=== PATIENT | male | born 1985 | race Caucasian/White ===

== ENCOUNTER 2017-10-25 14:28 | Emergency (ER) | payer OTHER ==
--- NOTE | 2017-10-25 14:46 | EDPHY ---
H & P Stated Complaint: r flank and rlq abd pain last few days/worse today - Personal History Current Tetanus/Diphtheria Vaccine: Yes - Medical/Surgical History Hx Asthma: No Hx Chronic Respiratory Disease: No Hx Diabetes: No Hx Cardiac Disease: No Hx Renal Disease: No Hx Cirrhosis: No Hx Alcoholism: No Hx HIV/AIDS: No Hx Splenectomy or Spleen Trauma: No Other PMH: back issues/mass on L4 - Social History Smoking Status: Never smoked Time Seen by Provider: 10/25/17 14:38 HPI/ROS: CHIEF COMPLAINT: Abdominal pain x1 day HISTORY OF PRESENT ILLNESS: 32-year-old male complaining of right lower quadrant abdominal pain for the past 1 day. He was seen at [facility], had negative urinalysis and referred to the ER for evaluation of possible acute appendicitis. Denies nausea or vomiting. Denies radiation pain. Denies testicular pain. Denies trauma. Denies urinary abnormality Last oral intake was at 11:00 a.m. consisting of an apple REVIEW OF SYSTEMS: A ten point review of systems was performed and is negative with the exception of the items mentioned in the HPI PAST MEDICAL & SURGICAL HISTORY: No pertinent medical or surgical history SOCIAL HISTORY: Nonsmoker PHYSICAL EXAM (Prior to examination, patient consented to physical exam, hands were washed and my usual and customary physical exam procedures followed) 1) GENERAL: Well-developed, well-nourished, alert and oriented. Appears nontoxic. 2) HEAD: Normocephalic, atraumatic 3) HEENT: Pupils equal, round, reactive to light bilaterally. Sclera anicteric. Nasopharynx, oropharynx, clear, no lesions moist mucous membranes 4) NECK: Full range of motion, no meningeal signs. 5) LUNGS: Clear auscultation bilaterally, no wheezes, no rhonchi, no retractions. 6) HEART: Regular rate and rhythm, no murmur, no heave, no gallop. 7) ABDOMEN: Tender to palpation at McBurney's point, negative Garcia's, negative Rovsing's, negative peritoneal sign, no mass, no hernia. 8) MUSCULOSKELETAL: Moving all extremities, no focal areas of tenderness, no obvious trauma. No peripheral edema or discoloration. 9) BACK: No CVA tenderness, no midline vertebral tenderness, no fluctuance, no step-off, no obvious trauma, no visual or palpable abnormality. 10) SKIN: No rash, no petechiae. 11) : Circumcised, normal male external genitalia bilateral testicles are nontender, no high-riding, normal cremasteric reflex bilaterally. No hernia DIFFERENTIAL DIAGNOSIS: My differential diagnosis includes, but is not limited to, acute appendicitis, acute cholecystitis, bowel obstruction, acute pancreatitis, testicular torsion, gastritis and urinary tract infection. The patient understands that this diagnosis is provisional and can never be 100% accurate. This is a partial list of diagnoses considered. These considerations are based on history, physical exam, past history and reassessment. (Melissa Whitman) Constitutional: Initial Vital Signs Temperature (C) 36.8 C 10/25/17 14:30 Heart Rate 56 L 10/25/17 14:30 Respiratory Rate 18 10/25/17 14:30 Blood Pressure 127/77 H 10/25/17 14:30 O2 Sat (%) 96 10/25/17 14:30 O2 Delivery Mode Room Air Allergies/Adverse Reactions: No Known Allergies Allergy (Unverified 10/25/17 14:30) Home Medications: Medication Instructions Recorded NK [No Known Home Meds] 10/25/17 Medical Decision Making - Diagnostics Imaging Results: Imaging Impressions Abdomen CT 10/25/17 15:06 Impression: Normal CT examination of the abdomen and pelvis. No evidence of acute appendicitis. Results called to Francisco Whitman PA-C, at 4:15 PM. Images reviewed by myself (Melissa Whitman) ED Course/Re-evaluation: 2:44 p.m.: Patient is complaining of focal right lower quadrant pain, tender to palpation McBurney's point, normal exam. Will plan on imaging studies, laboratory studies. He remains NPO since 11:00 a.m. today. Care of patient under supervision of primary supervising physician Dr Garcia . I reviewed the patient's urinalysis which was obtained shortly prior to arrival urgent care this is negative for bacteriuria, pyuria, hematuria. 4:17 p.m.: CT abdomen pelvis interpreted by staff radiologist is negative for appendicitis or acute intra-abdominal pathology. Images reviewed by myself 4:30 p.m.: Re-evaluation. Discussed with the patient his imaging results. Re- examined the patient. Abdomen is soft , no guarding no rebound no McBurney's point pain. Specific etiology of his abdominal pain is incompletely clear at this time. Doubt acute surgical abdominal pathology. I do not think that hospital admission or emergent surgical consultation is indicated. Plan will be discharge with close follow-up and usual and customary abdominal precautions instructions. He feels comfortable being discharged. Discussed case with primary supervising physician Dr. Garcia in emergency department (Melissa Whitman) Other Provider: PHYSICIAN DOCUMENTATION: The patient was evaluated and managed by the Physician Overhead Worker. My co- signature indicates that I have reviewed this chart and I agree with the findings and plan of care as documented. I am the secondary supervising physician. (Josias Garcia) - Data Points Laboratory Results: Laboratory Results 10/25/17 15:10 10/25/17 15:10 10/25/17 10/25/17 10/25/17 15:29 15:10 15:10 WBC 9.56 10^3/uL H 10^3/uL (3.80-9.50) RBC 5.10 10^6/uL 10^6/uL (4.40-6.38) Hgb 15.9 g/dL g/dL (13.7-17.5) POC Hgb 15.6 gm/dL gm/dL (13.7-17.5) Hct 45.1 % % (40.0-51.0) POC Hct 46 % % (40-51) MCV 88.4 fL fL (81.5-99.8) MCH 31.2 pg pg (27.9-34.1) MCHC 35.3 g/dL g/dL (32.4-36.7) RDW 12.8 % % (11.5-15.2) Plt Count 188 10^3/uL 10^3/uL (150-400) MPV 10.4 fL fL (8.7-11.7) Neut % (Auto) 62.6 % % (39.3-74.2) Lymph % (Auto) 27.3 % % (15.0-45.0) Reeves % (Auto) 8.2 % % (4.5-13.0) Eos % (Auto) 1.0 % % (0.6-7.6) Baso % (Auto) 0.6 % % (0.3-1.7) Nucleat RBC Rel Count 0.0 % % (0.0-0.2) Absolute Neuts (auto) 5.98 10^3/uL 10^3/uL (1.70-6.50) Absolute Lymphs (auto) 2.61 10^3/uL 10^3/uL (1.00-3.00) Absolute Monos (auto) 0.78 10^3/uL 10^3/uL (0.30-0.80) Absolute Eos (auto) 0.10 10^3/uL 10^3/uL (0.03-0.40) Absolute Basos (auto) 0.06 10^3/uL 10^3/uL (0.02-0.10) Absolute Nucleated RBC 0.00 10^3/uL 10^3/uL (0-0.01) Immature Gran % 0.3 % % (0.0-1.1) Immature Gran # 0.03 10^3/uL 10^3/uL (0.00-0.10) POC Sodium 140 mEq/L mEq/L (135-145) Sodium 139 mEq/L mEq/L (135-145) POC Potassium 3.8 mEq/L mEq/L (3.3-5.0) Potassium 4.1 mEq/L mEq/L (3.5-5.2) POC Chloride 104 mEq/L mEq/L (97-110) Chloride 104 mEq/L mEq/L (97-110) Carbon Dioxide 25 mEq/l mEq/l (22-31) Anion Gap 10 mEq/L mEq/L (8-16) POC BUN 10 mg/dL mg/dL (7-23) BUN 12 mg/dL mg/dL (7-23) Creatinine 0.8 mg/dL mg/dL (0.7-1.3) POC Creatinine 0.8 mg/dL mg/dL (0.7-1.3) Estimated GFR > 60 Glucose 78 mg/dL mg/dL (70-100) POC Glucose 82 mg/dL mg/dL (70-100) Calcium 9.2 mg/dL mg/dL (8.5-10.4) Total Bilirubin 1.3 mg/dL mg/dL (0.1-1.4) Conjugated Bilirubin 0.3 mg/dL mg/dL (0.0-0.5) Unconjugated Bilirubin 1.0 mg/dL mg/dL (0.0-1.1) AST 23 IU/L IU/L (17-59) ALT 36 IU/L IU/L (21-72) Alkaline Phosphatase 61 IU/L IU/L (38-126) Total Protein 7.0 g/dL g/dL (6.3-8.2) Albumin 4.4 g/dL g/dL (3.5-5.0) Lipase 41 IU/L IU/L (23-300) Medications Given: Discontinued Medications Sodium Chloride (Ns) 1,000 mls @ 0 mls/hr IV ONCE ONE PRN Reason: Wide Open Stop: 10/25/17 15:07 Last Admin: 10/25/17 15:25 Dose: 1,000 mls Ketorolac Tromethamine (Toradol) 15 mg IVP EDNOW ONE Stop: 10/25/17 15:07 Last Admin: 10/25/17 15:28 Dose: 15 mg Point of Care Test Results: 10/25/17 15:29 POC Sodium 140 POC Potassium 3.8 POC Chloride 104 POC BUN 10 POC Creatinine 0.8 POC Glucose 82 Departure - Departure Disposition: Home, Routine, Self-Care Clinical Impression: Abdominal pain Qualifiers: Abdominal location: right lower quadrant Qualified Code(s): R10.31 - Right lower quadrant pain Condition: Good Instructions: Acute Abdominal Pain (ED) Additional Instructions: Seek immediate medical attention if you develop new or worsening symptoms, if you develop fevers, chills, inability to tolerate oral intake or any other symptoms that concerns you. Referrals: WADE LOPEZ [Primary Care Provider] - 1 day without fail
[2017-10-25] MEDS ORDERED: NS 1,000 ML IV ONE (15:06)
[2017-10-25] MEDS ORDERED: KETOROLAC 15 MG/1 ML SDV IVP ONE (15:06)
[2017-10-25 15:23] LABS: PLATELET COUNT 188 10^3/uL (150-400)
[2017-10-25] MEDS ORDERED: IOPAMIDOL (ISOVUE-300) 100 ML BTL ONE (15:47)
[2017-10-25 17:04] VITALS: BP 116/67
== END 2017-10-25 17:04 | disposition home or self-care (01) ==
DX: R10.31 Right lower quadrant pain (principal)
CPT/HCPCS: 82947-QW; 96374; J1885; Q9967

== ENCOUNTER → 2018-11-28 | Outpatient (CLI) | payer OTHER | LOC: BMCIMAGING 17:33 | PROVIDERS: ATTEND Family Medicine | DX: M51.36 Other intervertebral disc degeneration, lumbar region (principal); M51.37 Other intervertebral disc degeneration, lumbosacral region; M46.96 Unspecified inflammatory spondylopathy, lumbar region; M46.97 Unspecified inflammatory spondylopathy, lumbosacral region; Q76.0 Spina bifida occulta ==